=== PATIENT | male | born 1965 | race African-American/Black ===

== ENCOUNTER 2022-09-11 18:40 | Emergency (ER) | payer OTHER ==
[2022-09-11 19:31] LABS: Urine Blood Negative (Negative); Urine Glucose Negative (Negative); Urine Protein 1+ (Negative); Urine Specific Gravity 1.015 (1.005-1.030); Urine pH 8.5 (5.0-7.0)
[2022-09-11 19:45] LABS: Specific Gravity 1.013 (1.005-1.030); Urine Bacteria None Seen /HPF (<20); Urine Bilirubin NEGATIVE (Negative); Urine Blood Negative (Negative); Urine Clarity Turbid (Clear); Urine Color Light-Yellow (Yellow); Urine Glucose NEGATIVE (Negative); Urine Protein TRACE (Negative); Urine RBC <5 /HPF (None Seen); Urine Urobilinogen Normal (Normal)
[2022-09-11 20:22] LABS: Absolute Lymphocytes (CBC) 0.5 K/uL (0.7-4.9); Hematocrit 36.5 % (39.6-49.0); Lymphocytes % 20.3 % (15.3-44.8); MCV 93.3 fL (80-100); MPV 8.7 fL (7.6-11.3); RBC Red Blood Cell Count 3.91 M/uL (4.33-5.43)
[2022-09-11 20:39] LABS: Bilirubin Total 0.4 mg/dL (0.2-1.0); Potassium 4.1 mmol/L (3.5-5.1); Protein, Total 7.6 g/dL (6.4-8.2)
--- NOTE | 2022-09-11 22:04 | RAD REPORT ---
EXAM DESCRIPTION: CT - Abdomen Pelvis W Contrast - 09/11/2022 9:41 pm CLINICAL HISTORY: Abdominal pain/penile pain and swelling COMPARISON: none. TECHNIQUE: Computed axial tomography of the abdomen pelvis was obtained. 100 cc Isovue-300 was admin istered intravenously. Oral contrast was not requested which limits evaluation of bowel and appendix All CT scans are performed using dose optimization technique as appropriate and may include automated exposure control or mA/KV adjustment according to patient size. FINDINGS: Percutaneous gastrostomy tube in place The liver, spleen, pancreas, adrenal and kidneys appear unremarkable. There is no evidence of diverticulitis. Rotoscoliosis involves the spine Catheter has been placed into the bladder. Lucencies and sclerosis within the femoral heads probably avascular necrosis IMPRESSION: No acute abnormality is displayed.
[2022-09-11] MEDS ORDERED: NA CHLORIDE 0.9% 500 ML ONE (22:10)
--- NOTE | 2022-09-11 23:30 | ER ---
Nurse's Notes [facility] Name: Shalom Miller Age: 57 yrs Sex: Male : 1965 Arrival Date: 09/11/2022 Time: 18:44 Bed 23 Private MD: Diagnosis: Balanitis Presentation: 09/11 18:44 Chief complaint: EMS states: [facility] NOTED PENILE SWELLING AND bp DISCHARGE AROUND CATHETER PLACED ON 08/21. Coronavirus screen: At this time, the client does not indicate any symptoms associated with coronavirus-19. Ebola Screen: No symptoms or risks identified at this time. Initial Sepsis Screen: Does the patient meet any 2 criteria? No. Patient's initial sepsis screen is negative. Does the patient have a suspected source of infection? Yes:. Risk Assessment: Do you want to hurt yourself or someone else? Patient reports no desire to harm self or others. Onset of symptoms is unknown. Care prior to arrival: Glucose check: 98. 18:44 Method Of Arrival: EMS: [facility] bp 18:44 Acuity: GOLDEN 3 bp Triage Assessment: 18:46 General: Appears in no apparent distress. Behavior is unresponsive. Pain: Unable to use bp pain scale. EENT: No deficits noted. Neuro: AT BASELINE. Cardiovascular: No deficits noted. Respiratory: No deficits noted. GI: No signs and/or symptoms were reported involving the gastrointestinal system. : Camarena in place. Derm: No deficits noted. Musculoskeletal: No deficits noted. Historical: - Allergies: 18:46 No Known Allergies; bp - Immunization history:: Adult Immunizations up to date. - Social history:: Smoking status: unknown. Screenin:08 [facility] ED Fall Risk Assessment (Adult) History of falling in the last 3 months, bp including since admission No falls in past 3 months (0 pts). Abuse screen: Denies threats or abuse. Denies injuries from another. Nutritional screening: No deficits noted. Tuberculosis screening: No symptoms or risk factors identified. Assessment: 18:45 General: SEE TRIAGE NOTE. bp 19:00 General: Appears in no apparent distress. Behavior is cooperative. Pain: Complains of eh3 pain in groin. Neuro: Level of Consciousness is awake, obeys commands, Oriented to nonverbal. Cardiovascular: Capillary refill < 3 seconds Patient's skin is warm and dry. Respiratory: Airway is patent Respiratory effort is even, unlabored, Respiratory pattern is regular, symmetrical. GI: Abdomen is flat, non-distended, PEG tube in place. : Camarena in place Blood noted Swelling noted at urinary meatus on penis. EENT: No signs and/or symptoms were reported regarding the EENT system. Derm: Decubitus located on sacrum approximately 2.6 cm to 7.5 cm has macerated edges bed has fibrin present is draining small amount purulent serosanguinous. Musculoskeletal: Range of motion: limited in all extremities. 20:00 Reassessment: Patient appears in no apparent distress at this time. Pt is alert, equal eh3 unlabored respirations, skin warm/dry/pink. 21:00 Reassessment: Pt in CT at this time. eh3 21:30 Reassessment: Patient appears in no apparent distress at this time. Pt is alert, equal eh3 unlabored respirations, skin warm/dry/pink. 22:30 Reassessment: Patient appears in no apparent distress at this time. Pt is alert, equal eh3 unlabored respirations, skin warm/dry/pink. 23:30 Reassessment: Patient appears in no apparent distress at this time. Pt is alert, equal eh3 unlabored respirations, skin warm/dry/pink. 09/12 00:39 Reassessment: EMS at bedside for transfer of pt to [place]. bb Vital Signs: 09/11 18:44 BP 136 / 89; Pulse 95; Resp 16; Temp 98; Pulse Ox 96% ; bp 19:07 BP 145 / 95; Pulse 79; Resp 16; Pulse Ox 98% ; bp 20:30 BP 115 / 88; Pulse 77; Resp 16; Pulse Ox 95% on 2 lpm NC; eh3 21:30 BP 118 / 92; Pulse 80; Resp 16; Pulse Ox 97% on 2 lpm NC; eh3 22:30 BP 117 / 94; Pulse 80; Resp 16; Pulse Ox 97% on 2 lpm NC; eh3 23:30 BP 128 / 93; Pulse 72; Resp 16; Pulse Ox 100% on 2 lpm NC; eh3 ED Course: 18:44 Patient arrived in ED. bp 18:45 Triage completed. bp 18:46 Arm band placed on. bp 18:50 Michael Robles NP is PHCP. pm1 18:50 Jeremy Calvin MD is Attending Physician. pm1 18:57 Caden Brooks, KIMMY is Primary Nurse. bp 19:08 Patient has correct armband on for positive identification. Bed in low position. Call bp light in reach. Side rails up X2. 20:00 Repositioned patient. Cleaned of incontinence. Linen changed. Decubitus wound noted, eh3 wound dressing contaminated with stool, old dressing removed, wound cleaned of stool, new nonadherent pad and tegaderm applied. 20:15 Lactate w/ 2H reflex if indic. Sent. eh3 20:15 CMP Sent. eh3 20:15 CBC with Diff Sent. eh3 20:15 Missed attempt(s): 22 gauge in left upper arm. Bleeding controlled, band aid applied, eh3 catheter tip intact. 20:30 Missed attempt(s): 22 gauge in left antecubital area. Bleeding controlled, band aid eh3 applied, catheter tip intact. 21:18 Inserted saline lock: 22 gauge in left antecubital area, using aseptic technique. eh3 21:43 CT Abd/Pelvis - IV Contrast Only In Process Unspecified. EDMS 23:15 Patient tolerated well. Camarena cath removed intact, balloon deflated. eh3 23:20 Camarena cath inserted, using sterile technique, 16 Fr., by la, balloon inflated, to eh3 gravity drainage, Patient tolerated well. 23:45 No provider procedures requiring assistance completed. IV discontinued, intact, eh3 bleeding controlled, No redness/swelling at site. Pressure dressing applied. Administered Medications: 22:00 Drug: NS 0.9% 500 ml Route: IV; Rate: bolus; Site: left antecubital; eh3 23:06 Follow up: IV Status: Completed infusion; IV Intake: 500ml eh3 Medication: 23:45 VIS not applicable for this client. eh3 Intake: 23:06 IV: 500ml; Total: 500ml. eh3 Outcome: 23:30 Discharge ordered by . pm1 09/12 00:11 Discharged to half-way. eh3 Condition: stable Discharge instructions given to patient, half-way, Instructed on discharge instructions, follow up and referral plans. medication usage, Demonstrated understanding of instructions, follow-up care, medications, Prescriptions given X 2. 00:39 Patient left the ED. bb Signatures: Dispatcher [facility] Estrada, RN RN bb Michael Robles, CREEL CLEANER CREEL CLEANER pm1 Caden Brooks, RN RN bp Kala Zhao RN RN eh3 Corrections: (The following items were deleted from the chart) 09/11 21:19 20:15 Missed attempt(s): 22 gauge in left upper arm. 3 3
--- NOTE | 2022-09-11 23:31 | EDPHYS ---
Physician Documentation [facility] Name: Shalom Miller Age: 57 yrs Sex: Male : 1965 Arrival Date: 09/11/2022 Time: 18:44 Bed 23 Private MD: ED Physician Jeremy Calvin HPI: 09/11 18:53 This 57 yrs old Black Male presents to ER via EMS with complaints of Problem With pm1 Urinary Catheter. 18:53 The patient presents with swelling, of the penis. Modifying factors: The symptoms are pm1 alleviated by nothing, the symptoms are aggravated by nothing. Associated signs and symptoms: Pertinent positives: penile discharge per custodial report. It is unknown whether or not the patient has had similar symptoms in the past. It is unknown whether or not the patient has recently seen a physician. 57-year-old custodial resident presents to the ER with complaints of penile swelling and discharge per custodial staff. Hill catheter was placed on 08/21/2022. Historical: - Allergies: 18:46 No Known Allergies; bp - Immunization history:: Adult Immunizations up to date. - Social history:: Smoking status: unknown. ROS: 18:53 Constitutional: Negative for fever, chills, and weight loss, Cardiovascular: Negative pm1 for chest pain, palpitations, and edema, Respiratory: Negative for shortness of breath, cough, wheezing, and pleuritic chest pain, Abdomen/GI: Negative for abdominal pain, nausea, vomiting, diarrhea, and constipation. 18:53 MS/Extremity: Negative for injury and deformity. 18:53 : Positive for penile discharge, penile swelling. 18:53 All other systems are negative. Exam: 18:53 Constitutional: The patient appears awake, non-diaphoretic, non-toxic, well hydrated, pm1 contracted. 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 18:53 Cardiovascular: Exam negative for acute changes, Rate: normal, Rhythm: regular, Pulses: no pulse deficits are appreciated. 18:53 Respiratory: Exam negative for acute changes, respiratory distress, shortness of breath. 18:53 Abdomen/GI: Inspection: peg tube present, negative for any rash or cellulitis, Palpation: abdomen is soft and non-tender, in all quadrants. 18:53 : Male external genitalia: erythema, is absent, penile discharge, is absent, swelling, penile, blotchy rash present to glans and shaft of penis with whitish patches. 18:53 Skin: Appearance: normal except for affected area, consistent with contact dermatitis, diaper dermatitis to groin area. 18:53 Neuro: Exam negative for acute changes. Vital Signs: 18:44 BP 136 / 89; Pulse 95; Resp 16; Temp 98; Pulse Ox 96% ; bp 19:07 BP 145 / 95; Pulse 79; Resp 16; Pulse Ox 98% ; bp 20:30 BP 115 / 88; Pulse 77; Resp 16; Pulse Ox 95% on 2 lpm NC; eh3 21:30 BP 118 / 92; Pulse 80; Resp 16; Pulse Ox 97% on 2 lpm NC; eh3 22:30 BP 117 / 94; Pulse 80; Resp 16; Pulse Ox 97% on 2 lpm NC; eh3 23:30 BP 128 / 93; Pulse 72; Resp 16; Pulse Ox 100% on 2 lpm NC; eh3 MDM: 18:53 Patient medically screened. [facility] 21:15 Differential diagnosis: UTI, urethritis, balanitis, cellulitis, contact dermatitis. pm1 23:05 ED course: Discussed treatment plan with Dr Maloney. Patient is not septic, vital signs pm1 within normal limits. Recommends hill change and topical antifungal. Impression: Patient with balanitis and diaper dermatitis. Will treat with prescription for topical clotrimazole and keflex by peg tube. 23:08 Data reviewed: vital signs. pm1 23:08 Differential diagnosis: balanitis, fungal infection, bacterial infection. pm1 23:20 Counseling: I had a detailed discussion with the patient and/or guardian regarding: the pm1 historical points, exam findings, and any diagnostic results supporting the discharge/admit diagnosis, lab results, radiology results, to return to the emergency department if symptoms worsen or persist or if there are any questions or concerns that arise at home, discussed findings and diagnosis with sister who has medical power of psych sales specialist and plan for treatment with two antibiotics, topical and via PEG tube. 09/11 18:47 Order name: UA; Complete Time: 19:45 [facility] 09/11 18:47 Order name: UA MICROSCOPIC [facility] 09/11 18:47 Order name: Urine Culture [facility] 09/11 18:47 Order name: CBC with Diff; Complete Time: 20:39 [facility] 09/11 18:47 Order name: CMP; Complete Time: 20:39 [facility] 09/11 18:49 Order name: Lactate w/ 2H reflex if indic.; Complete Time: 21:15 [facility] 09/11 18:56 Order name: CT Abd/Pelvis - IV Contrast Only; Complete Time: 22:18 pm1 09/11 19:32 Order name: Urine Dipstick-Ancillary; Complete Time: 19:45 [facility] 09/11 23:04 Order name: Misc. Order: Change hill; Complete Time: 23:23 pm1 Administered Medications: 22:00 Drug: NS 0.9% 500 ml Route: IV; Rate: bolus; Site: left antecubital; 3 23:06 Follow up: IV Status: Completed infusion; IV Intake: 500ml 3 Disposition Summary: 09/11/22 23:30 Discharge Ordered Location: Home pm1 Problem: new pm1 Symptoms: have improved pm1 Condition: Stable pm1 Diagnosis - Balanitis pm1 Followup: pm1 - With: Emergency Department - When: As needed - Reason: Worsening of condition Followup: pm1 - With: Private Physician - When: 2 - 3 days - Reason: Recheck today's complaints, Continuance of care, Re-evaluation by your physician Discharge Instructions: - Discharge Summary Sheet pm1 - Balanitis pm1 Forms: - Medication Reconciliation Form pm1 - Thank You Letter pm1 - Antibiotic Education pm1 - Prescription Opioid Use pm1 - SBAR form 3 Prescriptions: - Cephalexin 500 mg Oral Capsule - take 1 capsule by ORAL route every 6 hours for 10 days; 40 capsule; Refills: 0, pm1 Product Selection Permitted - Clotrimazole 1 % Topical Cream - Apply to affected area 1 application by TOPICAL route every 12 hours; 30 gram; pm1 Refills: 0, Product Selection Permitted Signatures: Dispatcher [employer] Michael Taylor NP HIM MANAGER pm1 Caden Brooks, RN RN Jeremy Martinez MD MD [id number] Kala Zhao RN RN 3
[2022-09-12 02:07] VITALS: TEMP 98
[2022-09-12 02:22] VITALS: BP 128/93; O2SAT 100
== END 2022-09-12 00:39 | disposition home or self-care (01) ==
LOC: ER 18:40
DX: N48.1 Balanitis (principal)
CPT/HCPCS: 87088; 85025; 81001; 87086; 36415; 83605; 87077; 87186; 80053; 74177; 51702; 96360; 99285; Q9967; J7040; 81003; 81015